=== PATIENT | female | born 1965 | race Caucasian/White ===

== ENCOUNTER 2019-08-16 15:26 | Emergency (ER) | payer MEDICARE ==
[2019-08-16] MEDS ORDERED: HYDROmorphone 1 MG/ML Syringe IVPUSH ONE ×2 (15:30→16:03)
[2019-08-16] MEDS ORDERED: LORazepam 0.5 MG Tab PO ONE (15:30)
[2019-08-16] MEDS ORDERED: LORazepam 2 MG/ML SDV IVPUSH ONE ×2 (15:50→16:06)
--- NOTE | 2019-08-16 15:56 | EDM.PDOC ---
ED HPI GENERAL MEDICAL PROBLEM - General Chief Complaint: Lower Extremity Injury/Pain Stated Complaint: MEDICAL VIA [facility] Time Seen by Provider: 08/16/19 15:51 Source of Information: Reports: Patient History Limitations: Reports: No Limitations - History of Present Illness INITIAL COMMENTS - FREE TEXT/NARRATIVE: pt stepped on a sovel and she developed severe pain in her rt foot. Onset: Today, Sudden Duration: Minutes: Location: Reports: Lower Extremity, Right Associated Symptoms: Reports: No Other Symptoms Right Foot Pain Score (Numeric/FACES): 10 Social & Family History - Tobacco Use Smoking Status *Q: Never Smoker - Caffeine Use Caffeine Use: Reports: Coffee - Recreational Drug Use Recreational Drug Use: No Review of Systems - Review of Systems Review Of Systems: See Below Constitutional: Reports: No Symptoms Eyes: Reports: No Symptoms Ears: Reports: No Symptoms Nose: Reports: No Symptoms Mouth/Throat: Reports: No Symptoms Respiratory: Reports: No Symptoms Cardiovascular: Reports: No Symptoms GI/Abdominal: Reports: No Symptoms Musculoskeletal: Reports: Other ( severe pain in the rt foot with deformity. ) ED EXAM, GENERAL - Physical Exam Exam: See Below Free Text/Narrative:: pt has severe pain in the rt foot with deformity after stepping on the rt foot Exam Limited By: No Limitations General Appearance: Alert, Anxious, Severe Distress Extremities: Other (pt has a good pulse and a deformed rt foot. She is very uncomfortable. xray reveals a dislocation pf the phananges fron the small bones of t-- metatarsals, No definite fracture is noted. ) Neurological: Alert, Oriented, Normal Cognition Course - Vital Signs Last Recorded V/S: Last Vital Signs Temp 36.6 C 08/16/19 15:45 Pulse 101 H 08/16/19 16:12 Resp 16 08/16/19 16:12 BP 153/67 H 08/16/19 16:12 Pulse Ox 98 08/16/19 16:12 - Orders/Labs/Meds Meds: Medications Discontinued Medications Generic Name Dose Route Start Last Admin Trade Name Freq PRN Reason Stop Dose Admin Hydromorphone HCl 1 mg 08/16/19 15:30 08/16/19 15:35 Dilaudid IVPUSH 08/16/19 15:31 1 mg ONETIME ONE Administration Hydromorphone HCl 1 mg 08/16/19 16:03 08/16/19 16:08 Dilaudid IVPUSH 08/16/19 16:04 1 mg ONETIME ONE Administration Lorazepam 0.5 mg 08/16/19 15:30 08/16/19 15:35 Ativan PO 08/16/19 15:31 0.5 mg ONETIME ONE Administration Lorazepam 0.5 mg 08/16/19 15:50 08/16/19 15:54 Ativan IVPUSH 08/16/19 15:51 0.5 mg ONETIME ONE Administration Lorazepam 0.5 mg 08/16/19 16:06 08/16/19 16:12 Ativan IVPUSH 08/16/19 16:07 0.5 mg ONETIME ONE Administration Methylprednisolone Sodium Succinate 40 mg 08/16/19 16:06 08/16/19 16:12 Solu-Medrol IVPUSH 08/16/19 16:07 40 mg ONETIME ONE Administration - Re-Assessments/Exams Free Text/Narrative Re-Assessment/Exam: 08/16/19 15:55 pt arrived with pain and swelling in the rt foot with obvious deformity and pain. She does have sensation and she does have a good pulse. 08/16/19 15:56 pt has many medical problems. She is imosuppressed, she has sojrens ra, She has adrensl insuff, She has a anticardiolipid antibody, She has had a ablation for atrial fib. 08/16/19 16:07 08/16/19 16:25pt has a homlateral Lafranc fracture of the foot. Departure - Departure Time of Disposition: 15:58 Disposition: DC/Tfer to Acute Hospital 02 Condition: Fair Clinical Impression: Foot fracture - Discharge Information Referrals: PCP,None [Primary Care Provider] - Forms: ED Department Discharge Care Plan Goals: elevate, to the [facility] ER. Dr Rivera is the accepting physian. Sepsis Event Note - Evaluation Sepsis Screening Result: No Definite Risk - Focused Exam Vital Signs: Vital Signs Temp Pulse Resp BP Pulse Ox 08/16/19 16:12 101 H 16 153/67 H 98 08/16/19 15:45 36.6 C 103 H 20 148/65 H 99 Date Exam was Performed: 08/16/19 Time Exam was Performed: 16:25
[2019-08-16] MEDS ORDERED: methylPREDNISolone Sodium Succinate 40 MG/1 ML SDV IVPUSH ONE (16:06)
--- NOTE | 2019-08-16 16:23 | CRLCR ---
Indication: Foot injury. Technique: Right foot 3 views. Comparison: None. Findings: There appears to be lateral subluxation of the 1st-5th metatarsals relative to the tarsal bones suggesting a homolateral Lisfranc injury. No acute fracture is identified. Scattered degenerative changes throughout the foot. Soft tissue swelling about the midfoot. Impression: Possible homolateral Lisfranc injury with lateral subluxation of the 1st-5th metatarsals relative to the tarsal bones. Recommend further evaluation with radiographic stress views versus CT of the foot. Dictated by Brittany Schaffer MD @ Aug 16 2019 4:15PM Signed by Dr. Brittany Schaffer @ Aug 16 2019 4:22PM
== END 2019-08-16 16:40 ==
LOC: JP.ED 15:26
DX: S92.901A Unspecified fracture of right foot, initial encounter for closed fracture (principal); X58.XXXA Exposure to other specified factors, initial encounter
CPT/HCPCS: 73630; 96374; 96375; 96376; 99285; A9270; J1170; J2060; J2920; 99284